=== PATIENT | female | born 1995 | race Caucasian/White ===

== ENCOUNTER 2018-09-06 19:21 | Emergency (ER) | payer OTHER ==
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
--- NOTE | 2018-09-06 20:14 | CRLCR ---
INDICATION: Pain right hip. TECHNIQUE: Two-view study right hip. FINDINGS: No fracture or dislocation. No bone or soft tissue abnormalities. Intrauterine contraceptive device in place. IMPRESSION: Negative radiographic examination of the right hip. Dictated by Nicole Pascual MD @ Sep 06 2018 8:09PM Signed by Dr. Nicole Pascual @ Sep 06 2018 8:12PM
[2018-09-06] MEDS ORDERED: HYDROmorphone 0.5 MG/0.5 ML Syringe IVPUSH ONE (20:27)
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
[2018-09-06] MEDS ORDERED: Bacitracin Oint 1 GM U/D Packet TOP ONE (20:52)
== END 2018-09-06 21:50 | disposition home or self-care (01) ==
LOC: JP.ED 19:21
DX: S00.83XA Contusion of other part of head, initial encounter (principal); S80.212A Abrasion, left knee, initial encounter; S70.311A Abrasion, right thigh, initial encounter; S60.511A Abrasion of right hand, initial encounter; R20.8 Other disturbances of skin sensation; V48.5XXA Car driver injured in noncollision transport accident in traffic accident, initial encounter
CPT/HCPCS: 70450; 72125; 73502; 73552; 96374; 99285; J1170

== ENCOUNTER 2024-11-08 19:20 | Emergency (ER) | payer OTHER ==
[2024-11-08 20:03] LABS: APPEARANCE,URINE CLOUDY (CLEAR); GLUCOSE,URINE NEGATIVE (NEGATIVE); OCCULT BLOOD,URINE LARGE (NEGATIVE)
[2024-11-08] MEDS: diphenhydrAMINE 50 MG/ML SDV IVPUSH ONE (20:41)
[2024-11-08 20:43] LABS: PLATELET COUNT,PLT 392 K/uL (130-375); RED BLOOD CELL COUNT 4.30 M/uL (3.77-5.24); WHITE BLOOD CELL COUNT,WBC 10.9 K/uL (3.2-11.0)
[2024-11-08] MEDS: Sodium Chloride 0.9% 10 ML Syringe FLUSH PRN (20:46)
[2024-11-08 20:49] LABS: SQUAMOUS EPITHELIAL CELLS,UR FEW /HPF; UROTHELIAL CELLS,URINE NOT SEEN /HPF
[2024-11-08 21:01] LABS: EOSINOPHILS ABSOLUTE MAN 0.44 K/uL (0.00-0.40); EOSINOPHILS PERCENT MAN 4 % (2-4); LYMPHOCYTES ABSOLUTE MAN 3.27 K/uL (0.8-3.3); LYMPHOCYTES PERCENT MAN 30 % (24-44); MONOCYTES ABSOLUTE MAN 0.87 K/uL (0.20-0.90); MONOCYTES PERCENT MAN 8 % (2-6); NEUTROPHILS ABSOLUTE MAN 6.32 K/uL (1.0-7.6); SEG NEUTROPHILS PERCENT MAN 58 % (36-66)
[2024-11-08 21:02] LABS: ATYPICAL LYMPHOCYTES RARE
[2024-11-08 21:05] LABS: A/G RATIO 0.6 (1.2-2.2); ALANINE AMINOTRANSFERASE,ALT 26 U/L (12-78); ASPARTATE AMNIOTRANSFERASE,AST 26 U/L (15-37); BILIRUBIN TOTAL 0.2 mg/dL (0.2-1.0); BLOOD UREA NITROGEN,BUN 15 mg/dL (7-18); CARBON DIOXIDE,CO2 25 mmol/L (21-32); CHLORIDE,CL 104 mmol/L (100-108); CREATININE 0.6 mg/dL (0.6-1.0); EST CRCL DRUG DOSING (CG) 112.38 mL/min; ESTIMATED GFR 123 mL/min (>60); GLUCOSE RANDOM 88 mg/dL (74-106); POTASSIUM,K 3.9 mmol/L (3.6-5.2); PROTEIN TOTAL,TP 7.2 g/dL (6.4-8.2); SODIUM,NA 138 mmol/L (140-148)
[2024-11-08 21:12] LABS: CREATININE,URINE RAND 96.4 mg/dL (20.0-370.0); PROTEIN CREATININE RATIO,URINE 434.6 mg/g (21.0-161.0); PROTEIN,URINE RANDOM 41.9 mg/dL (6.0-11.9)
[2024-11-08] MEDS: Amoxicillin/Clavulanate K 875-125 MG Tab PO ONE (21:59)
== END 2024-11-08 22:09 | disposition home or self-care (01) ==
LOC: JP.ED 19:20
DX: O99.893 Other specified diseases and conditions complicating puerperium (principal); R51.9 Headache, unspecified; Z79.1 Long term (current) use of non-steroidal anti-inflammatories (NSAID); Z79.899 Other long term (current) drug therapy
CPT/HCPCS: 36415; 80053; 81001; 82570; 84156; 85025; 87086; 96374; 99284; A9270; J1200